=== PATIENT | female | born 1990 | race Caucasian/White ===

== ENCOUNTER 2020-05-16 15:43 | Inpatient (IN) | payer BC ==
[~2020-05-16] VITALS: Ht 160 cm; Wt 69.2 kg
[2020-05-16] MEDS: BETAMETHASONE 6 MG/ML, 5ML IM SCH (15:45)
[2020-05-16 15:50] VITALS: BP 174/108
[2020-05-16] MEDS ORDERED: MAGNESIUM SULFATE PMX 2GM/50ML 50 ML IVPB ONE (16:00)
[2020-05-16] MEDS ORDERED: LACTATED RINGERS 1,000 ML IV PRN ×2 (16:00)
[2020-05-16] MEDS ORDERED: PLEASE ENTER HEIGHT AND WEIGHT MC SCH (16:00)
[2020-05-16] MEDS ORDERED: MAGNESIUM SULFATE PMX 4GM/100M 100 ML IVPB ONE ×2 (16:00)
[2020-05-16 16:05] LABS: MICROSCOPIC NOT IND
[2020-05-16] MEDS: MAGNESIUM SULF. PMX 20GM/500ML 500 ML IV SCH ×2 (16:07→23:56)
[2020-05-16 16:11] LABS: BASOPHILS % (AUTO) 1 % (0-1); EOSINOPHILS % (AUTO) 1 % (1-7); LYMPHOCYTES % (AUTO) 23 % (22-44); MEAN CORPUSCULAR HEMOGLOBIN 32.9 pg (27.0-34.8); MEAN CORPUSCULAR HGB CONC 35.6 g/dL (32.4-35.8); MEAN PLATELET VOLUME 9.1 fL (7.4-10.4); MONOCYTES % (AUTO) 8 % (2-9); NEUTROPHILS % (AUTO) 68 % (42-75); PLATELET COUNT 156 x10^3/uL (130-400); RED BLOOD COUNT 4.24 x10^6/uL (3.82-5.3); RED CELL DISTRIBUTION WIDTH 13.5 % (9.6-15.2)
[2020-05-16 16:13] LABS: MD NO
[2020-05-16 16:21] LABS: TOTAL PROTEIN,URINE RANDOM < 5 mg/dL (0-12)
[2020-05-16 16:21] LABS: ALANINE AMINOTRANSFERASE 28 U/L (12-78); ALBUMIN 2.8 g/dL (3.4-5.0); ANION GAP 8 mmol/L (5-15); CALCIUM 8.3 mg/dL (8.5-10.1); CHLORIDE 112 mmol/L (98-107)
[2020-05-16 16:22] LABS: BILIRUBIN, DIRECT < 0.1 mg/dL (0.1-0.2)
[2020-05-16] MEDS ORDERED: LABETALOL 5MG/ML, 20ML ONE ×2 (16:22→17:32)
[2020-05-16 16:24] LABS: ALKALINE PHOSPHATASE 74 U/L (45-117); BILIRUBIN,TOTAL 0.3 mg/dL (0.2-1.0); TOTAL PROTEIN 6.1 g/dL (6.4-8.2)
[2020-05-16] MEDS ORDERED: LABETALOL 5MG/ML, 20ML IVPush PRN ×3 (16:30)
[2020-05-16] MEDS ORDERED: hydrALAzine 20 MG/ML, 1ML IVPush ONE (16:30)
[2020-05-16] MEDS ORDERED: niFEDipine ER 30 MG TABLET.ER ONE (17:58)
[2020-05-16] MEDS: niFEDipine ER 30 MG TABLET.ER PO SCH (17:59)
[2020-05-16] MEDS ORDERED: ACETAMINOPHEN 500 MG TABLET ONE (20:56)
[2020-05-16] MEDS ORDERED: ACETAMINOPHEN 500 MG TABLET PO PRN (21:00)
[2020-05-16] MEDS ORDERED: MAGNESIUM SULF. PMX 20GM/500ML 500 ML IV ONE (23:51)
[2020-05-17] MEDS ORDERED: ACETAMINOPHEN 500 MG TABLET ONE (03:08)
[2020-05-17] MEDS: ACETAMINOPHEN 500 MG TABLET PO PRN (03:09)
[2020-05-17 05:30] LABS: BASOPHILS % (AUTO) 0 % (0-1); EOSINOPHILS % (AUTO) 0 % (1-7); LYMPHOCYTES % (AUTO) 9 % (22-44); MEAN CORPUSCULAR HEMOGLOBIN 32.7 pg (27.0-34.8); MEAN CORPUSCULAR HGB CONC 35.2 g/dL (32.4-35.8); MEAN PLATELET VOLUME 8.9 fL (7.4-10.4); MONOCYTES % (AUTO) 2 % (2-9); NEUTROPHILS % (AUTO) 89 % (42-75); PLATELET COUNT 169 x10^3/uL (130-400); RED BLOOD COUNT 4.37 x10^6/uL (3.82-5.3); RED CELL DISTRIBUTION WIDTH 13.5 % (9.6-15.2)
[2020-05-17 05:35] LABS: MD NO
[2020-05-17 05:42] LABS: ALANINE AMINOTRANSFERASE 30 U/L (12-78); ALBUMIN 2.7 g/dL (3.4-5.0); ANION GAP 10 mmol/L (5-15); CHLORIDE 106 mmol/L (98-107); CREATININE 0.77 mg/dL (0.55-1.02)
[2020-05-17 05:44] LABS: ALKALINE PHOSPHATASE 69 U/L (45-117); BILIRUBIN,TOTAL 0.4 mg/dL (0.2-1.0); TOTAL PROTEIN 6.1 g/dL (6.4-8.2)
[2020-05-17] MEDS ORDERED: niFEDipine ER 30 MG TABLET.ER ONE (08:53)
[2020-05-17] MEDS: niFEDipine ER 30 MG TABLET.ER PO SCH (08:55)
[2020-05-17] MEDS ORDERED: MAGNESIUM SULF. PMX 20GM/500ML 500 ML IV ONE (08:59)
[2020-05-17] MEDS: MAGNESIUM SULF. PMX 20GM/500ML 500 ML IV SCH ×2 (09:02→22:00)
[2020-05-17 09:13] VITALS: BP 123/76
[2020-05-17] MEDS: BETAMETHASONE 6 MG/ML, 5ML IM SCH (15:46)
[2020-05-17 17:10] VITALS: BP 124/84
[2020-05-17 20:49] VITALS: BP 128/82
[2020-05-18] MEDS: MAGNESIUM SULF. PMX 20GM/500ML 500 ML IV SCH ×2 (08:00→18:00)
[2020-05-18] MEDS: niFEDipine ER 30 MG TABLET.ER PO SCH (08:30)
[2020-05-18] MEDS ORDERED: niFEDipine ER 30 MG TABLET.ER ONE (08:30)
[2020-05-18 08:32] VITALS: BP 137/79
[2020-05-18 11:36] LABS: BASOPHILS % (AUTO) 0 % (0-1); EOSINOPHILS % (AUTO) 0 % (1-7); LYMPHOCYTES % (AUTO) 10 % (22-44); MEAN CORPUSCULAR HEMOGLOBIN 32.8 pg (27.0-34.8); MEAN CORPUSCULAR HGB CONC 35.2 g/dL (32.4-35.8); MONOCYTES % (AUTO) 9 % (2-9); NEUTROPHILS % (AUTO) 81 % (42-75); PLATELET COUNT 209 x10^3/uL (130-400); RED BLOOD COUNT 4.32 x10^6/uL (3.82-5.3); RED CELL DISTRIBUTION WIDTH 13.6 % (9.6-15.2)
[2020-05-18 11:41] LABS: MD NO
[2020-05-18 11:52] LABS: ALANINE AMINOTRANSFERASE 28 U/L (12-78); ALBUMIN 2.9 g/dL (3.4-5.0); ANION GAP 7 mmol/L (5-15); CALCIUM 7.7 mg/dL (8.5-10.1); CHLORIDE 109 mmol/L (98-107); CREATININE 0.87 mg/dL (0.55-1.02)
[2020-05-18 11:54] LABS: ALKALINE PHOSPHATASE 67 U/L (45-117); BILIRUBIN,TOTAL 0.2 mg/dL (0.2-1.0); TOTAL PROTEIN 6.3 g/dL (6.4-8.2)
[2020-05-18 14:04] VITALS: BP 128/81
[2020-05-18 19:52] VITALS: BP 134/97
[2020-05-18] MEDS ORDERED: PRENATAL VIT/IRON/FA 1 EACH TABLET ONE (20:08)
[2020-05-18] MEDS: PRENATAL VIT/IRON/FA 1 EACH TABLET PO SCH (20:10)
[2020-05-19] MEDS: MAGNESIUM SULF. PMX 20GM/500ML 500 ML IV SCH (04:00)
[2020-05-19] MEDS: SODIUM CHLORIDE FLUSH 10ML SYR IVF PRN ×3 (06:08→21:07)
[2020-05-19] MEDS ORDERED: niFEDipine ER 30 MG TABLET.ER ONE (08:49)
[2020-05-19] MEDS: niFEDipine ER 30 MG TABLET.ER PO SCH (09:05)
[2020-05-19 09:23] LABS: BASOPHILS % (AUTO) 0 % (0-1); EOSINOPHILS % (AUTO) 0 % (1-7); LYMPHOCYTES % (AUTO) 23 % (22-44); MD NO; MEAN CORPUSCULAR HEMOGLOBIN 32.8 pg (27.0-34.8); MEAN CORPUSCULAR HGB CONC 35.2 g/dL (32.4-35.8); MONOCYTES % (AUTO) 10 % (2-9); NEUTROPHILS % (AUTO) 67 % (42-75); PLATELET COUNT 166 x10^3/uL (130-400); RED BLOOD COUNT 4.43 x10^6/uL (3.82-5.3); RED CELL DISTRIBUTION WIDTH 13.7 % (9.6-15.2)
[2020-05-19 09:30] LABS: ALANINE AMINOTRANSFERASE 29 U/L (12-78); ALBUMIN 2.7 g/dL (3.4-5.0); ANION GAP 7 mmol/L (5-15); CALCIUM 8.2 mg/dL (8.5-10.1); CHLORIDE 110 mmol/L (98-107); CREATININE 0.77 mg/dL (0.55-1.02)
[2020-05-19 09:32] LABS: ALKALINE PHOSPHATASE 68 U/L (45-117); BILIRUBIN,TOTAL 0.3 mg/dL (0.2-1.0)
[2020-05-19 19:55] VITALS: BP 131/72
[2020-05-19] MEDS ORDERED: PRENATAL VIT/IRON/FA 1 EACH TABLET ONE (21:00)
[2020-05-19] MEDS: PRENATAL VIT/IRON/FA 1 EACH TABLET PO SCH (21:07)
[2020-05-20] MEDS: SODIUM CHLORIDE FLUSH 10ML SYR IVF PRN ×2 (06:07→16:12)
[2020-05-20] MEDS ORDERED: niFEDipine ER 30 MG TABLET.ER ONE (08:57)
[2020-05-20] MEDS: niFEDipine ER 30 MG TABLET.ER PO SCH (08:59)
[2020-05-20 09:25] LABS: ALANINE AMINOTRANSFERASE 67 U/L (12-78); ALBUMIN 2.7 g/dL (3.4-5.0); ANION GAP 7 mmol/L (5-15); CALCIUM 8.6 mg/dL (8.5-10.1); CHLORIDE 109 mmol/L (98-107); CREATININE 0.75 mg/dL (0.55-1.02)
[2020-05-20 09:27] LABS: ALKALINE PHOSPHATASE 65 U/L (45-117); BILIRUBIN,TOTAL 0.4 mg/dL (0.2-1.0)
[2020-05-20 09:35] LABS: BASOPHILS % (AUTO) 0 % (0-1); EOSINOPHILS % (AUTO) 0 % (1-7); LYMPHOCYTES % (AUTO) 27 % (22-44); MD NO; MEAN CORPUSCULAR HEMOGLOBIN 32.6 pg (27.0-34.8); MEAN PLATELET VOLUME 9.3 fL (7.4-10.4); MONOCYTES % (AUTO) 12 % (2-9); NEUTROPHILS % (AUTO) 61 % (42-75); PLATELET COUNT 163 x10^3/uL (130-400); RED BLOOD COUNT 4.62 x10^6/uL (3.82-5.3); RED CELL DISTRIBUTION WIDTH 13.3 % (9.6-15.2)
[2020-05-20] MEDS ORDERED: ACETAMINOPHEN 325 MG TABLET ONE (16:06)
[2020-05-20] MEDS ORDERED: ACETAMINOPHEN 500 MG TABLET ONE (16:10)
[2020-05-20] MEDS: ACETAMINOPHEN 500 MG TABLET PO PRN (16:11)
[2020-05-20 16:38] LABS: BASOPHILS % (AUTO) 0 % (0-1); EOSINOPHILS % (AUTO) 1 % (1-7); LYMPHOCYTES % (AUTO) 24 % (22-44); MD NO; MEAN CORPUSCULAR HGB CONC 35.4 g/dL (32.4-35.8); MEAN PLATELET VOLUME 9.1 fL (7.4-10.4); MONOCYTES % (AUTO) 10 % (2-9); NEUTROPHILS % (AUTO) 65 % (42-75); PLATELET COUNT 172 x10^3/uL (130-400); RED BLOOD COUNT 4.62 x10^6/uL (3.82-5.3); RED CELL DISTRIBUTION WIDTH 13.6 % (9.6-15.2)
[2020-05-20 16:39] LABS: ALANINE AMINOTRANSFERASE 67 U/L (12-78); ALBUMIN 2.8 g/dL (3.4-5.0); ANION GAP 7 mmol/L (5-15); CALCIUM 8.8 mg/dL (8.5-10.1); CHLORIDE 109 mmol/L (98-107)
[2020-05-20 16:41] LABS: ALKALINE PHOSPHATASE 77 U/L (45-117); BILIRUBIN,TOTAL 0.3 mg/dL (0.2-1.0); TOTAL PROTEIN 6.2 g/dL (6.4-8.2)
[2020-05-20 20:12] VITALS: BP 138/88
[2020-05-20] MEDS: PRENATAL VIT/IRON/FA 1 EACH TABLET PO SCH (20:27)
[2020-05-21] MEDS: SODIUM CHLORIDE FLUSH 10ML SYR IVF PRN ×3 (01:06→21:00)
[2020-05-21 08:20] VITALS: BP 140/95
[2020-05-21] MEDS ORDERED: PRENATAL VIT/IRON/FA 1 EACH TABLET ONE (08:34)
[2020-05-21] MEDS ORDERED: DOCUSATE 100 MG CAPSULE ONE (08:34)
[2020-05-21] MEDS ORDERED: niFEDipine ER 30 MG TABLET.ER ONE (08:34)
[2020-05-21] MEDS: niFEDipine ER 30 MG TABLET.ER PO SCH (08:39)
[2020-05-21 08:43] LABS: BASOPHILS % (AUTO) 0 % (0-1); EOSINOPHILS % (AUTO) 1 % (1-7); LYMPHOCYTES % (AUTO) 25 % (22-44); MEAN CORPUSCULAR HEMOGLOBIN 32.9 pg (27.0-34.8); MEAN CORPUSCULAR HGB CONC 35.9 g/dL (32.4-35.8); MEAN PLATELET VOLUME 8.9 fL (7.4-10.4); MONOCYTES % (AUTO) 6 % (2-9); NEUTROPHILS % (AUTO) 68 % (42-75); PLATELET COUNT 169 x10^3/uL (130-400); RED BLOOD COUNT 4.85 x10^6/uL (3.82-5.3); RED CELL DISTRIBUTION WIDTH 13.4 % (9.6-15.2)
[2020-05-21 08:47] LABS: MD NO
[2020-05-21 08:54] LABS: ALANINE AMINOTRANSFERASE 59 U/L (12-78); ALBUMIN 2.7 g/dL (3.4-5.0); ANION GAP 10 mmol/L (5-15); CALCIUM 8.7 mg/dL (8.5-10.1); CHLORIDE 108 mmol/L (98-107)
[2020-05-21 08:57] LABS: ALKALINE PHOSPHATASE 73 U/L (45-117); BILIRUBIN,TOTAL 0.4 mg/dL (0.2-1.0); TOTAL PROTEIN 6.1 g/dL (6.4-8.2)
[2020-05-21 20:18] VITALS: BP 136/92
[2020-05-22 00:23] VITALS: BP 137/86
[2020-05-22] MEDS ORDERED: niFEDipine ER 30 MG TABLET.ER ONE (08:36)
[2020-05-22] MEDS ORDERED: PRENATAL VIT/IRON/FA 1 EACH TABLET ONE (08:36)
[2020-05-22] MEDS: niFEDipine ER 30 MG TABLET.ER PO SCH (08:51)
[2020-05-22] MEDS: PRENATAL VIT/IRON/FA 1 EACH TABLET PO SCH (08:51)
[2020-05-22] MEDS: SODIUM CHLORIDE FLUSH 10ML SYR IVF PRN ×2 (08:52→21:00)
[2020-05-22] MEDS ORDERED: DOCUSATE 100 MG CAPSULE ONE ×2 (08:54→21:37)
[2020-05-22] MEDS: DOCUSATE 100 MG CAPSULE PO PRN ×2 (08:54→21:39)
[2020-05-22 09:07] LABS: BASOPHILS % (AUTO) 1 % (0-1); EOSINOPHILS % (AUTO) 1 % (1-7); LYMPHOCYTES % (AUTO) 28 % (22-44); MEAN CORPUSCULAR HEMOGLOBIN 32.5 pg (27.0-34.8); MEAN CORPUSCULAR HGB CONC 35.1 g/dL (32.4-35.8); MEAN PLATELET VOLUME 8.9 fL (7.4-10.4); MONOCYTES % (AUTO) 6 % (2-9); NEUTROPHILS % (AUTO) 65 % (42-75); PLATELET COUNT 192 x10^3/uL (130-400); RED BLOOD COUNT 4.94 x10^6/uL (3.82-5.3); RED CELL DISTRIBUTION WIDTH 13.5 % (9.6-15.2)
[2020-05-22 09:10] LABS: MD NO
[2020-05-22 09:21] LABS: ALANINE AMINOTRANSFERASE 44 U/L (12-78); ALBUMIN 2.8 g/dL (3.4-5.0); ANION GAP 9 mmol/L (5-15); CALCIUM 8.6 mg/dL (8.5-10.1); CHLORIDE 109 mmol/L (98-107); CREATININE 0.88 mg/dL (0.55-1.02)
[2020-05-22 09:23] LABS: ALKALINE PHOSPHATASE 76 U/L (45-117); BILIRUBIN,TOTAL 0.5 mg/dL (0.2-1.0); TOTAL PROTEIN 6.4 g/dL (6.4-8.2)
[2020-05-22 21:13] VITALS: BP 135/88
[2020-05-22 21:54] VITALS: BP 142/92
[2020-05-23 06:46] LABS: BASOPHILS % (AUTO) 1 % (0-1); EOSINOPHILS % (AUTO) 1 % (1-7); LYMPHOCYTES % (AUTO) 29 % (22-44); MEAN CORPUSCULAR HEMOGLOBIN 32.9 pg (27.0-34.8); MEAN CORPUSCULAR HGB CONC 35.4 g/dL (32.4-35.8); MEAN PLATELET VOLUME 8.8 fL (7.4-10.4); MONOCYTES % (AUTO) 8 % (2-9); NEUTROPHILS % (AUTO) 62 % (42-75); PLATELET COUNT 155 x10^3/uL (130-400); RED BLOOD COUNT 4.62 x10^6/uL (3.82-5.3); RED CELL DISTRIBUTION WIDTH 13.7 % (9.6-15.2)
[2020-05-23 06:48] LABS: MD NO
[2020-05-23 06:56] LABS: ALANINE AMINOTRANSFERASE 33 U/L (12-78); ALBUMIN 2.6 g/dL (3.4-5.0); ANION GAP 8 mmol/L (5-15); CALCIUM 8.2 mg/dL (8.5-10.1); CHLORIDE 109 mmol/L (98-107); CREATININE 0.77 mg/dL (0.55-1.02)
[2020-05-23 06:59] LABS: ALKALINE PHOSPHATASE 68 U/L (45-117); BILIRUBIN,TOTAL 0.4 mg/dL (0.2-1.0); TOTAL PROTEIN 5.8 g/dL (6.4-8.2)
[2020-05-23] MEDS ORDERED: DOCUSATE 100 MG CAPSULE ONE ×2 (08:19→20:58)
[2020-05-23] MEDS ORDERED: PRENATAL VIT/IRON/FA 1 EACH TABLET ONE (08:19)
[2020-05-23] MEDS ORDERED: niFEDipine ER 30 MG TABLET.ER ONE (08:20)
[2020-05-23] MEDS: PRENATAL VIT/IRON/FA 1 EACH TABLET PO SCH (08:22)
[2020-05-23] MEDS: niFEDipine ER 30 MG TABLET.ER PO SCH (08:22)
[2020-05-23] MEDS: DOCUSATE 100 MG CAPSULE PO PRN ×2 (08:22→21:00)
[2020-05-23 08:33] VITALS: BP 148/75
[2020-05-23 18:16] LABS: BASOPHILS % (AUTO) 0 % (0-1); EOSINOPHILS % (AUTO) 1 % (1-7); LYMPHOCYTES % (AUTO) 18 % (22-44); MEAN PLATELET VOLUME 8.5 fL (7.4-10.4); MONOCYTES % (AUTO) 7 % (2-9); NEUTROPHILS % (AUTO) 74 % (42-75); PLATELET COUNT 163 x10^3/uL (130-400); RED BLOOD COUNT 4.88 x10^6/uL (3.82-5.3); RED CELL DISTRIBUTION WIDTH 13.6 % (9.6-15.2)
[2020-05-23 18:27] LABS: ALANINE AMINOTRANSFERASE 34 U/L (12-78); ANION GAP 8 mmol/L (5-15); CALCIUM 8.7 mg/dL (8.5-10.1); CHLORIDE 106 mmol/L (98-107)
[2020-05-23 18:30] LABS: ALKALINE PHOSPHATASE 81 U/L (45-117); BILIRUBIN,TOTAL 0.5 mg/dL (0.2-1.0); TOTAL PROTEIN 6.5 g/dL (6.4-8.2)
[2020-05-23 18:52] LABS: MD NO
[2020-05-23] MEDS: SODIUM CHLORIDE FLUSH 10ML SYR IVF PRN (21:00)
[2020-05-24 04:45] LABS: BASOPHILS % (AUTO) 0 % (0-1); EOSINOPHILS % (AUTO) 1 % (1-7); LYMPHOCYTES % (AUTO) 19 % (22-44); MEAN CORPUSCULAR HEMOGLOBIN 33.2 pg (27.0-34.8); MEAN CORPUSCULAR HGB CONC 36.3 g/dL (32.4-35.8); MEAN PLATELET VOLUME 8.5 fL (7.4-10.4); MONOCYTES % (AUTO) 9 % (2-9); NEUTROPHILS % (AUTO) 71 % (42-75); PLATELET COUNT 130 x10^3/uL (130-400); RED CELL DISTRIBUTION WIDTH 13.7 % (9.6-15.2)
[2020-05-24 04:47] LABS: MD NO
[2020-05-24 04:57] LABS: ALANINE AMINOTRANSFERASE 28 U/L (12-78); ALBUMIN 2.5 g/dL (3.4-5.0); ANION GAP 7 mmol/L (5-15); CALCIUM 8.1 mg/dL (8.5-10.1); CHLORIDE 109 mmol/L (98-107); CREATININE 0.77 mg/dL (0.55-1.02)
[2020-05-24 05:00] LABS: ALKALINE PHOSPHATASE 73 U/L (45-117); BILIRUBIN,TOTAL 0.6 mg/dL (0.2-1.0); TOTAL PROTEIN 5.8 g/dL (6.4-8.2)
[2020-05-24] MEDS ORDERED: PRENATAL VIT/IRON/FA 1 EACH TABLET ONE (09:19)
[2020-05-24] MEDS ORDERED: niFEDipine ER 30 MG TABLET.ER ONE (09:19)
[2020-05-24] MEDS ORDERED: DOCUSATE 100 MG CAPSULE ONE ×2 (09:19→09:24)
[2020-05-24] MEDS: SODIUM CHLORIDE FLUSH 10ML SYR IVF PRN (09:21)
[2020-05-24] MEDS: niFEDipine ER 30 MG TABLET.ER PO SCH (09:21)
[2020-05-24] MEDS: PRENATAL VIT/IRON/FA 1 EACH TABLET PO SCH (09:21)
[2020-05-24] MEDS: DOCUSATE 100 MG CAPSULE PO PRN (09:21)
[2020-05-24 18:29] LABS: BASOPHILS % (AUTO) 1 % (0-1); EOSINOPHILS % (AUTO) 1 % (1-7); LYMPHOCYTES % (AUTO) 23 % (22-44); MEAN CORPUSCULAR HEMOGLOBIN 32.9 pg (27.0-34.8); MEAN CORPUSCULAR HGB CONC 35.8 g/dL (32.4-35.8); MEAN PLATELET VOLUME 8.6 fL (7.4-10.4); MONOCYTES % (AUTO) 8 % (2-9); NEUTROPHILS % (AUTO) 67 % (42-75); PLATELET COUNT 125 x10^3/uL (130-400); RED BLOOD COUNT 4.57 x10^6/uL (3.82-5.3); RED CELL DISTRIBUTION WIDTH 13.5 % (9.6-15.2)
[2020-05-24 18:37] LABS: ALANINE AMINOTRANSFERASE 28 U/L (12-78); ALBUMIN 2.8 g/dL (3.4-5.0); ANION GAP 7 mmol/L (5-15); CALCIUM 8.6 mg/dL (8.5-10.1); CHLORIDE 107 mmol/L (98-107); CREATININE 0.81 mg/dL (0.55-1.02)
[2020-05-24 18:39] LABS: ALKALINE PHOSPHATASE 86 U/L (45-117); BILIRUBIN, DIRECT < 0.1 mg/dL (0.1-0.2); BILIRUBIN,TOTAL 0.4 mg/dL (0.2-1.0); TOTAL PROTEIN 6.4 g/dL (6.4-8.2)
[2020-05-24 18:44] LABS: MD NO
[2020-05-24 20:14] LABS: PROTEIN/CREATININE RATIO,URINE < 272 (0-200); TOTAL PROTEIN,URINE RANDOM < 5 mg/dL (0-12)
[2020-05-25 06:00] LABS: BASOPHILS % (AUTO) 1 % (0-1); EOSINOPHILS % (AUTO) 1 % (1-7); LYMPHOCYTES % (AUTO) 30 % (22-44); MEAN CORPUSCULAR HEMOGLOBIN 33.3 pg (27.0-34.8); MEAN CORPUSCULAR HGB CONC 36.6 g/dL (32.4-35.8); MEAN PLATELET VOLUME 8.5 fL (7.4-10.4); MONOCYTES % (AUTO) 8 % (2-9); NEUTROPHILS % (AUTO) 59 % (42-75); PLATELET COUNT 125 x10^3/uL (130-400); RED BLOOD COUNT 4.49 x10^6/uL (3.82-5.3); RED CELL DISTRIBUTION WIDTH 13.5 % (9.6-15.2)
[2020-05-25 06:01] LABS: MD NO
[2020-05-25 06:12] LABS: ALANINE AMINOTRANSFERASE 28 U/L (12-78); ALBUMIN 2.7 g/dL (3.4-5.0); ANION GAP 9 mmol/L (5-15); CALCIUM 8.2 mg/dL (8.5-10.1); CHLORIDE 107 mmol/L (98-107); CREATININE 0.81 mg/dL (0.55-1.02)
[2020-05-25 06:15] LABS: ALKALINE PHOSPHATASE 75 U/L (45-117); BILIRUBIN,TOTAL 0.4 mg/dL (0.2-1.0); TOTAL PROTEIN 6.1 g/dL (6.4-8.2)
[2020-05-25 06:16] LABS: BILIRUBIN, DIRECT < 0.1 mg/dL (0.1-0.2)
[2020-05-25] MEDS ORDERED: PRENATAL VIT/IRON/FA 1 EACH TABLET ONE (07:57)
[2020-05-25] MEDS ORDERED: DOCUSATE 100 MG CAPSULE ONE (07:57)
[2020-05-25] MEDS ORDERED: niFEDipine ER 30 MG TABLET.ER ONE (07:58)
[2020-05-25] MEDS: niFEDipine ER 30 MG TABLET.ER PO SCH (09:04)
[2020-05-25] MEDS: SODIUM CHLORIDE FLUSH 10ML SYR IVF PRN (09:04)
[2020-05-25] MEDS: PRENATAL VIT/IRON/FA 1 EACH TABLET PO SCH (09:04)
[2020-05-25] MEDS: DOCUSATE 100 MG CAPSULE PO PRN (09:04)
[2020-05-25 09:40] VITALS: BP 114/79
[2020-05-25 20:13] VITALS: BP 133/88
[2020-05-26 04:58] LABS: BASOPHILS % (AUTO) 0 % (0-1); EOSINOPHILS % (AUTO) 1 % (1-7); LYMPHOCYTES % (AUTO) 35 % (22-44); MEAN CORPUSCULAR HGB CONC 36.1 g/dL (32.4-35.8); MEAN PLATELET VOLUME 8.7 fL (7.4-10.4); MONOCYTES % (AUTO) 8 % (2-9); NEUTROPHILS % (AUTO) 55 % (42-75); PLATELET COUNT 133 x10^3/uL (130-400); RED BLOOD COUNT 4.41 x10^6/uL (3.82-5.3); RED CELL DISTRIBUTION WIDTH 13.5 % (9.6-15.2)
[2020-05-26 05:06] LABS: MD NO
[2020-05-26 05:23] LABS: ALANINE AMINOTRANSFERASE 25 U/L (12-78); ALBUMIN 2.5 g/dL (3.4-5.0); ANION GAP 8 mmol/L (5-15); CHLORIDE 110 mmol/L (98-107)
[2020-05-26 05:26] LABS: ALKALINE PHOSPHATASE 82 U/L (45-117); BILIRUBIN,TOTAL 0.3 mg/dL (0.2-1.0); CREATININE 0.75 mg/dL (0.55-1.02); TOTAL PROTEIN 5.8 g/dL (6.4-8.2)
[2020-05-26] MEDS ORDERED: DOCUSATE 100 MG CAPSULE ONE ×2 (08:25→21:06)
[2020-05-26] MEDS ORDERED: niFEDipine ER 30 MG TABLET.ER ONE (08:25)
[2020-05-26] MEDS ORDERED: PRENATAL VIT/IRON/FA 1 EACH TABLET ONE (08:25)
[2020-05-26] MEDS: niFEDipine ER 30 MG TABLET.ER PO SCH (08:37)
[2020-05-26] MEDS: DOCUSATE 100 MG CAPSULE PO PRN ×2 (08:37→21:08)
[2020-05-26] MEDS: PRENATAL VIT/IRON/FA 1 EACH TABLET PO SCH (08:37)
[2020-05-26] MEDS: SODIUM CHLORIDE FLUSH 10ML SYR IVF PRN ×2 (08:38→21:08)
[2020-05-26] MEDS ORDERED: MAGNESIUM SULFATE PMX 2GM/50ML 0 ML ONE (22:21)
[2020-05-26] MEDS ORDERED: MAGNESIUM SULFATE PMX 4GM/100M 100 ML ONE (22:21)
[2020-05-26] MEDS ORDERED: MAGNESIUM SULF. PMX 20GM/500ML 500 ML IV ONE (22:22)
[2020-05-26] MEDS ORDERED: MAGNESIUM SULFATE PMX 4GM/100M 100 ML IVPB ONE (22:30)
[2020-05-26] MEDS ORDERED: MAGNESIUM SULF. PMX 20GM/500ML 500 ML IV SCH (22:30)
[2020-05-27] MEDS: LACTATED RINGERS 1,000 ML IV SCH ×2 (03:30→13:30)
[2020-05-27 08:00] LABS: BASOPHILS % (AUTO) 1 % (0-1); EOSINOPHILS % (AUTO) 1 % (1-7); LYMPHOCYTES % (AUTO) 33 % (22-44); MEAN CORPUSCULAR HEMOGLOBIN 32.7 pg (27.0-34.8); MEAN CORPUSCULAR HGB CONC 35.2 g/dL (32.4-35.8); MEAN PLATELET VOLUME 8.8 fL (7.4-10.4); MONOCYTES % (AUTO) 8 % (2-9); NEUTROPHILS % (AUTO) 58 % (42-75); PLATELET COUNT 126 x10^3/uL (130-400); RED BLOOD COUNT 4.29 x10^6/uL (3.82-5.3); RED CELL DISTRIBUTION WIDTH 13.6 % (9.6-15.2)
[2020-05-27 08:04] LABS: MD NO
[2020-05-27 08:11] LABS: ALBUMIN 2.5 g/dL (3.4-5.0); ANION GAP 6 mmol/L (5-15); CALCIUM 7.1 mg/dL (8.5-10.1); CHLORIDE 106 mmol/L (98-107)
[2020-05-27 08:15] LABS: ALANINE AMINOTRANSFERASE 21 U/L (12-78); ALKALINE PHOSPHATASE 81 U/L (45-117); BILIRUBIN,TOTAL 0.3 mg/dL (0.2-1.0); CREATININE 0.84 mg/dL (0.55-1.02); TOTAL PROTEIN 5.9 g/dL (6.4-8.2)
[2020-05-27] MEDS ORDERED: PRENATAL VIT/IRON/FA 1 EACH TABLET ONE (08:55)
[2020-05-27] MEDS ORDERED: niFEDipine ER 30 MG TABLET.ER ONE (08:55)
[2020-05-27] MEDS ORDERED: DOCUSATE 100 MG CAPSULE ONE ×2 (08:55→19:37)
[2020-05-27] MEDS: DOCUSATE 100 MG CAPSULE PO PRN ×2 (08:58→19:41)
[2020-05-27] MEDS: niFEDipine ER 30 MG TABLET.ER PO SCH (08:59)
[2020-05-27] MEDS: PRENATAL VIT/IRON/FA 1 EACH TABLET PO SCH (08:59)
[2020-05-27] MEDS ORDERED: ACETAMINOPHEN 500 MG TABLET ONE ×2 (11:06→19:44)
[2020-05-27] MEDS: ACETAMINOPHEN 500 MG TABLET PO PRN ×2 (11:08→19:47)
[2020-05-27 17:11] LABS: TOTAL PROTEIN 24HR,URINE 215 mg/24hrs (0-149)
[2020-05-27] MEDS ORDERED: ACETAMINOPHEN 325 MG TABLET ONE (19:37)
[2020-05-27 20:00] VITALS: BP 136/82
[2020-05-27] MEDS ORDERED: SODIUM CHLORIDE FLUSH 10ML SYR IVF SCH (21:00)
[2020-05-28 05:47] LABS: BASOPHILS % (AUTO) 0 % (0-1); EOSINOPHILS % (AUTO) 1 % (1-7); LYMPHOCYTES % (AUTO) 36 % (22-44); MEAN CORPUSCULAR HEMOGLOBIN 32.8 pg (27.0-34.8); MEAN CORPUSCULAR HGB CONC 35.6 g/dL (32.4-35.8); MEAN PLATELET VOLUME 8.7 fL (7.4-10.4); MONOCYTES % (AUTO) 8 % (2-9); NEUTROPHILS % (AUTO) 55 % (42-75); PLATELET COUNT 143 x10^3/uL (130-400); RED BLOOD COUNT 4.39 x10^6/uL (3.82-5.3); RED CELL DISTRIBUTION WIDTH 13.4 % (9.6-15.2)
[2020-05-28 05:58] LABS: ALANINE AMINOTRANSFERASE 19 U/L (12-78); ALBUMIN 2.5 g/dL (3.4-5.0); ANION GAP 6 mmol/L (5-15); CHLORIDE 111 mmol/L (98-107)
[2020-05-28 06:00] LABS: ALKALINE PHOSPHATASE 76 U/L (45-117); BILIRUBIN,TOTAL 0.3 mg/dL (0.2-1.0)
[2020-05-28 06:16] LABS: MD SCAN
[2020-05-28] MEDS ORDERED: niFEDipine ER 30 MG TABLET.ER ONE (08:50)
[2020-05-28] MEDS ORDERED: PRENATAL VIT/IRON/FA 1 EACH TABLET ONE (08:50)
[2020-05-28] MEDS: SODIUM CHLORIDE FLUSH 10ML SYR IVF PRN ×2 (08:52→21:00)
[2020-05-28] MEDS: niFEDipine ER 30 MG TABLET.ER PO SCH (08:52)
[2020-05-28] MEDS: PRENATAL VIT/IRON/FA 1 EACH TABLET PO SCH (08:52)
[2020-05-28] MEDS: DOCUSATE 100 MG CAPSULE PO PRN (21:00)
[2020-05-29 08:24] LABS: BASOPHILS % (AUTO) 1 % (0-1); EOSINOPHILS % (AUTO) 1 % (1-7); LYMPHOCYTES % (AUTO) 29 % (22-44); MEAN CORPUSCULAR HEMOGLOBIN 32.5 pg (27.0-34.8); MONOCYTES % (AUTO) 7 % (2-9); NEUTROPHILS % (AUTO) 62 % (42-75); PLATELET COUNT 154 x10^3/uL (130-400); RED BLOOD COUNT 4.38 x10^6/uL (3.82-5.3); RED CELL DISTRIBUTION WIDTH 13.3 % (9.6-15.2)
[2020-05-29 08:30] LABS: ALANINE AMINOTRANSFERASE 19 U/L (12-78); ALBUMIN 2.6 g/dL (3.4-5.0); ANION GAP 9 mmol/L (5-15); CALCIUM 8.2 mg/dL (8.5-10.1); CHLORIDE 108 mmol/L (98-107)
[2020-05-29 08:32] LABS: ALKALINE PHOSPHATASE 81 U/L (45-117); BILIRUBIN,TOTAL 0.3 mg/dL (0.2-1.0)
[2020-05-29 08:34] LABS: MD NO
[2020-05-29] MEDS: niFEDipine ER 30 MG TABLET.ER PO SCH (09:03)
[2020-05-29] MEDS: PRENATAL VIT/IRON/FA 1 EACH TABLET PO SCH (09:03)
[2020-05-29] MEDS: DOCUSATE 100 MG CAPSULE PO PRN (09:03)
[2020-05-29 09:05] VITALS: BP 152/92
[2020-05-29] MEDS: ACETAMINOPHEN 500 MG TABLET PO PRN (14:46)
[2020-05-29 19:20] VITALS: BP 143/95
[2020-05-30 06:18] LABS: BASOPHILS % (AUTO) 1 % (0-1); EOSINOPHILS % (AUTO) 2 % (1-7); LYMPHOCYTES % (AUTO) 34 % (22-44); MEAN CORPUSCULAR HEMOGLOBIN 32.7 pg (27.0-34.8); MEAN CORPUSCULAR HGB CONC 35.8 g/dL (32.4-35.8); MONOCYTES % (AUTO) 7 % (2-9); NEUTROPHILS % (AUTO) 57 % (42-75); PLATELET COUNT 167 x10^3/uL (130-400); RED BLOOD COUNT 4.47 x10^6/uL (3.82-5.3); RED CELL DISTRIBUTION WIDTH 13.5 % (9.6-15.2)
[2020-05-30 06:23] LABS: MD NO
[2020-05-30 06:28] LABS: ALBUMIN 2.6 g/dL (3.4-5.0); ANION GAP 6 mmol/L (5-15); CALCIUM 8.5 mg/dL (8.5-10.1); CHLORIDE 109 mmol/L (98-107)
[2020-05-30 06:33] LABS: ALANINE AMINOTRANSFERASE 25 U/L (12-78); ALKALINE PHOSPHATASE 78 U/L (45-117); BILIRUBIN,TOTAL 0.2 mg/dL (0.2-1.0); CREATININE 0.84 mg/dL (0.55-1.02); TOTAL PROTEIN 6.1 g/dL (6.4-8.2)
[2020-05-30] MEDS: PRENATAL VIT/IRON/FA 1 EACH TABLET PO SCH (08:26)
[2020-05-30] MEDS: DOCUSATE 100 MG CAPSULE PO PRN (08:26)
[2020-05-30] MEDS: niFEDipine ER 30 MG TABLET.ER PO SCH (08:26)
[2020-05-30 10:06] VITALS: BP 143/99
[2020-05-30 21:30] VITALS: BP 131/87
[2020-05-31 06:11] LABS: BASOPHILS % (AUTO) 1 % (0-1); EOSINOPHILS % (AUTO) 1 % (1-7); LYMPHOCYTES % (AUTO) 34 % (22-44); MEAN CORPUSCULAR HEMOGLOBIN 32.6 pg (27.0-34.8); MEAN CORPUSCULAR HGB CONC 35.5 g/dL (32.4-35.8); MEAN PLATELET VOLUME 8.9 fL (7.4-10.4); MONOCYTES % (AUTO) 8 % (2-9); NEUTROPHILS % (AUTO) 57 % (42-75); PLATELET COUNT 156 x10^3/uL (130-400); RED BLOOD COUNT 4.39 x10^6/uL (3.82-5.3); RED CELL DISTRIBUTION WIDTH 13.4 % (9.6-15.2)
[2020-05-31 06:18] LABS: CHLORIDE 109 mmol/L (98-107)
[2020-05-31 06:25] LABS: MD NO
[2020-05-31 06:31] LABS: ALANINE AMINOTRANSFERASE 27 U/L (12-78); ALBUMIN 2.6 g/dL (3.4-5.0); ALKALINE PHOSPHATASE 83 U/L (45-117); ANION GAP 7 mmol/L (5-15); BILIRUBIN,TOTAL 0.2 mg/dL (0.2-1.0); CALCIUM 8.3 mg/dL (8.5-10.1); CREATININE 0.77 mg/dL (0.55-1.02)
[2020-05-31 07:30] VITALS: BP 130/84
[2020-05-31] MEDS: PRENATAL VIT/IRON/FA 1 EACH TABLET PO SCH (09:07)
[2020-05-31] MEDS: DOCUSATE 100 MG CAPSULE PO PRN (09:07)
[2020-05-31] MEDS: niFEDipine ER 30 MG TABLET.ER PO SCH (09:08)
[2020-05-31] MEDS: SODIUM CHLORIDE FLUSH 10ML SYR IVF PRN (09:09)
[2020-05-31 13:03] VITALS: BP 138/99
[2020-05-31 16:35] VITALS: BP 135/99
[2020-06-01] MEDS: niFEDipine ER 30 MG TABLET.ER PO SCH (08:57)
[2020-06-01] MEDS: DOCUSATE 100 MG CAPSULE PO PRN (08:57)
[2020-06-01] MEDS: PRENATAL VIT/IRON/FA 1 EACH TABLET PO SCH (08:57)
[2020-06-01] MEDS: SODIUM CHLORIDE FLUSH 10ML SYR IVF PRN (08:58)
[2020-06-01] MEDS ORDERED: BETAMETHASONE 6 MG/ML, 5ML IM ONE (20:54)
[2020-06-01] MEDS: BETAMETHASONE 6 MG/ML, 5ML IM SCH (20:58)
[2020-06-02] MEDS: DOCUSATE 100 MG CAPSULE PO PRN (08:52)
[2020-06-02] MEDS: niFEDipine ER 30 MG TABLET.ER PO SCH (08:52)
[2020-06-02] MEDS: PRENATAL VIT/IRON/FA 1 EACH TABLET PO SCH (08:52)
[2020-06-02 08:54] LABS: BASOPHILS % (AUTO) 0 % (0-1); EOSINOPHILS % (AUTO) 0 % (1-7); LYMPHOCYTES % (AUTO) 15 % (22-44); MEAN CORPUSCULAR HEMOGLOBIN 33.2 pg (27.0-34.8); MEAN CORPUSCULAR HGB CONC 36.2 g/dL (32.4-35.8); MEAN PLATELET VOLUME 8.9 fL (7.4-10.4); MONOCYTES % (AUTO) 1 % (2-9); NEUTROPHILS % (AUTO) 84 % (42-75); PLATELET COUNT 214 x10^3/uL (130-400); RED BLOOD COUNT 4.67 x10^6/uL (3.82-5.3); RED CELL DISTRIBUTION WIDTH 13.4 % (9.6-15.2)
[2020-06-02 09:06] LABS: ANION GAP 10 mmol/L (5-15); CALCIUM 9.2 mg/dL (8.5-10.1); CHLORIDE 106 mmol/L (98-107)
[2020-06-02 09:09] LABS: ALANINE AMINOTRANSFERASE 22 U/L (12-78); ALKALINE PHOSPHATASE 92 U/L (45-117); BILIRUBIN,TOTAL 0.4 mg/dL (0.2-1.0); CREATININE 1.07 mg/dL (0.55-1.02); TOTAL PROTEIN 6.8 g/dL (6.4-8.2)
[2020-06-02 09:14] LABS: MD SCAN
[2020-06-02 14:01] LABS: BASOPHILS % (AUTO) 0 % (0-1); EOSINOPHILS % (AUTO) 0 % (1-7); LYMPHOCYTES % (AUTO) 13 % (22-44); MEAN PLATELET VOLUME 8.8 fL (7.4-10.4); MONOCYTES % (AUTO) 2 % (2-9); NEUTROPHILS % (AUTO) 85 % (42-75); PLATELET COUNT 211 x10^3/uL (130-400); RED BLOOD COUNT 4.65 x10^6/uL (3.82-5.3); RED CELL DISTRIBUTION WIDTH 13.4 % (9.6-15.2)
[2020-06-02 14:03] LABS: MD NO
[2020-06-02 14:16] LABS: ALANINE AMINOTRANSFERASE 24 U/L (12-78); ANION GAP 9 mmol/L (5-15); CALCIUM 9.6 mg/dL (8.5-10.1); CHLORIDE 107 mmol/L (98-107); CREATININE 0.97 mg/dL (0.55-1.02)
[2020-06-02 14:18] LABS: ALKALINE PHOSPHATASE 90 U/L (45-117); BILIRUBIN,TOTAL 0.4 mg/dL (0.2-1.0); TOTAL PROTEIN 6.7 g/dL (6.4-8.2)
[2020-06-02] MEDS ORDERED: LACTATED RINGERS 1,000 ML IVBOLUS ONE (16:00)
[2020-06-02] MEDS ORDERED: hydrALAzine 20 MG/ML, 1ML IV PRN (16:30)
[2020-06-02] MEDS ORDERED: PROMETHAZINE 25 MG/ML, 1ML IV PRN (16:30)
[2020-06-02] MEDS ORDERED: LABETALOL 5MG/ML, 20ML IV PRN (16:30)
[2020-06-02] MEDS ORDERED: FENTANYL PF 100 MCG/2ML IV PRN (16:30)
[2020-06-02] MEDS ORDERED: HYDROmorphone 2 MG/ML, 1ML IVPush PRN (16:30)
[2020-06-02] MEDS ORDERED: ONDANSETRON 2MG/ML, 2ML IVPush PRN (16:30)
[2020-06-02] MEDS ORDERED: MIDAZOLAM 1 MG/ML, 2ML IV PRN (16:30)
[2020-06-02] MEDS ORDERED: EPHEDRINE 50 MG/ML, 1ML IVPush PRN (16:30)
[2020-06-02] MEDS ORDERED: MEPERIDINE/PF 25MG/0.5ML IVPush PRN (16:30)
[2020-06-02] MEDS ORDERED: HYDROcodone/APAP 7.5-325MG/15ML UDC PO PRN ×2 (16:30)
[2020-06-02] MEDS ORDERED: OXYcodone 5 MG/5 ML ORAL.SOL UDC PO PRN (16:30)
[2020-06-02] MEDS ORDERED: ALBUTEROL SULFATE 2.5 MG/3 ML NPPB PRN (16:30)
[2020-06-02] MEDS ORDERED: METOPROLOL 1 MG/ML, 5ML IV PRN (16:30)
[2020-06-02] MEDS: LACTATED RINGERS 1,000 ML IV SCH (17:53)
[2020-06-02 19:20] VITALS: BP 118/75
[2020-06-02 20:23] LABS: BASOPHILS % (AUTO) 0 % (0-1); EOSINOPHILS % (AUTO) 0 % (1-7); LYMPHOCYTES % (AUTO) 15 % (22-44); MEAN CORPUSCULAR HEMOGLOBIN 32.2 pg (27.0-34.8); MEAN CORPUSCULAR HGB CONC 35.2 g/dL (32.4-35.8); MEAN PLATELET VOLUME 8.6 fL (7.4-10.4); MONOCYTES % (AUTO) 6 % (2-9); NEUTROPHILS % (AUTO) 79 % (42-75); PLATELET COUNT 207 x10^3/uL (130-400); RED BLOOD COUNT 4.23 x10^6/uL (3.82-5.3); RED CELL DISTRIBUTION WIDTH 13.3 % (9.6-15.2)
[2020-06-02 20:28] LABS: MD NO
[2020-06-02 20:32] LABS: ALANINE AMINOTRANSFERASE 20 U/L (12-78); ALBUMIN 2.6 g/dL (3.4-5.0); ANION GAP 9 mmol/L (5-15); CALCIUM 8.4 mg/dL (8.5-10.1); CHLORIDE 109 mmol/L (98-107); CREATININE 1.01 mg/dL (0.55-1.02)
[2020-06-02 20:35] LABS: ALKALINE PHOSPHATASE 83 U/L (45-117); BILIRUBIN,TOTAL 0.2 mg/dL (0.2-1.0); TOTAL PROTEIN 5.8 g/dL (6.4-8.2)
[2020-06-02] MEDS: BETAMETHASONE 6 MG/ML, 5ML IM SCH (20:58)
[2020-06-03] MEDS: LACTATED RINGERS 1,000 ML IV SCH ×3 (02:00→18:00)
[2020-06-03 06:12] LABS: BASOPHILS % (AUTO) 0 % (0-1); EOSINOPHILS % (AUTO) 0 % (1-7); LYMPHOCYTES % (AUTO) 13 % (22-44); MEAN CORPUSCULAR HEMOGLOBIN 32.6 pg (27.0-34.8); MEAN CORPUSCULAR HGB CONC 35.8 g/dL (32.4-35.8); MEAN PLATELET VOLUME 8.7 fL (7.4-10.4); MONOCYTES % (AUTO) 2 % (2-9); NEUTROPHILS % (AUTO) 85 % (42-75); PLATELET COUNT 197 x10^3/uL (130-400); RED CELL DISTRIBUTION WIDTH 13.3 % (9.6-15.2)
[2020-06-03 06:29] LABS: MD NO
[2020-06-03 06:55] LABS: ALANINE AMINOTRANSFERASE 20 U/L (12-78); ALBUMIN 2.7 g/dL (3.4-5.0); ANION GAP 8 mmol/L (5-15); CALCIUM 8.6 mg/dL (8.5-10.1); CHLORIDE 109 mmol/L (98-107); CREATININE 0.89 mg/dL (0.55-1.02)
[2020-06-03 06:58] LABS: ALKALINE PHOSPHATASE 86 U/L (45-117); BILIRUBIN,TOTAL 0.2 mg/dL (0.2-1.0); TOTAL PROTEIN 6.3 g/dL (6.4-8.2)
[2020-06-03] MEDS: niFEDipine ER 30 MG TABLET.ER PO SCH (08:47)
[2020-06-03] MEDS: PRENATAL VIT/IRON/FA 1 EACH TABLET PO SCH (08:47)
[2020-06-03] MEDS: DOCUSATE 100 MG CAPSULE PO PRN (08:50)
[2020-06-03] MEDS: BETAMETHASONE 6 MG/ML, 5ML IM SCH (09:00)
[2020-06-03 20:25] VITALS: BP 129/77
[2020-06-04] MEDS: LACTATED RINGERS 1,000 ML IV SCH ×3 (02:00→18:00)
[2020-06-04] MEDS: SODIUM CHLORIDE FLUSH 10ML SYR IVF PRN ×2 (05:57→21:38)
[2020-06-04 08:39] LABS: BASOPHILS % (AUTO) 0 % (0-1); EOSINOPHILS % (AUTO) 0 % (1-7); LYMPHOCYTES % (AUTO) 28 % (22-44); MD NO; MEAN CORPUSCULAR HEMOGLOBIN 32.7 pg (27.0-34.8); MEAN CORPUSCULAR HGB CONC 35.6 g/dL (32.4-35.8); MEAN PLATELET VOLUME 8.3 fL (7.4-10.4); MONOCYTES % (AUTO) 7 % (2-9); NEUTROPHILS % (AUTO) 64 % (42-75); PLATELET COUNT 173 x10^3/uL (130-400); RED BLOOD COUNT 4.17 x10^6/uL (3.82-5.3); RED CELL DISTRIBUTION WIDTH 13.4 % (9.6-15.2)
[2020-06-04 08:47] LABS: ALANINE AMINOTRANSFERASE 18 U/L (12-78); ALBUMIN 2.5 g/dL (3.4-5.0); ANION GAP 7 mmol/L (5-15); CALCIUM 8.5 mg/dL (8.5-10.1); CHLORIDE 108 mmol/L (98-107); CREATININE 0.88 mg/dL (0.55-1.02)
[2020-06-04 08:49] LABS: ALKALINE PHOSPHATASE 74 U/L (45-117); BILIRUBIN,TOTAL 0.2 mg/dL (0.2-1.0); TOTAL PROTEIN 5.7 g/dL (6.4-8.2)
[2020-06-04] MEDS: niFEDipine ER 30 MG TABLET.ER PO SCH (08:56)
[2020-06-04] MEDS: PRENATAL VIT/IRON/FA 1 EACH TABLET PO SCH (08:57)
[2020-06-04] MEDS: DOCUSATE 100 MG CAPSULE PO PRN (21:38)
[2020-06-05] MEDS: LACTATED RINGERS 1,000 ML IV SCH ×3 (02:00→18:00)
[2020-06-05] MEDS: niFEDipine ER 30 MG TABLET.ER PO SCH (09:16)
[2020-06-05] MEDS: PRENATAL VIT/IRON/FA 1 EACH TABLET PO SCH (09:17)
[2020-06-05] MEDS: DOCUSATE 100 MG CAPSULE PO PRN (09:18)
[2020-06-05] MEDS: SODIUM CHLORIDE FLUSH 10ML SYR IVF PRN (09:20)
[2020-06-05 09:55] VITALS: BP 135/83
[2020-06-05 19:45] VITALS: BP 125/85
[2020-06-06] MEDS: LACTATED RINGERS 1,000 ML IV SCH ×3 (02:00→18:00)
[2020-06-06 05:31] LABS: BASOPHILS % (AUTO) 0 % (0-1); EOSINOPHILS % (AUTO) 1 % (1-7); LYMPHOCYTES % (AUTO) 31 % (22-44); MEAN CORPUSCULAR HGB CONC 36.4 g/dL (32.4-35.8); MEAN PLATELET VOLUME 8.9 fL (7.4-10.4); MONOCYTES % (AUTO) 9 % (2-9); NEUTROPHILS % (AUTO) 59 % (42-75); PLATELET COUNT 129 x10^3/uL (130-400); RED BLOOD COUNT 4.27 x10^6/uL (3.82-5.3); RED CELL DISTRIBUTION WIDTH 13.5 % (9.6-15.2)
[2020-06-06 05:36] LABS: MD NO
[2020-06-06 05:52] LABS: ALBUMIN 2.4 g/dL (3.4-5.0); ANION GAP 7 mmol/L (5-15); CALCIUM 8.1 mg/dL (8.5-10.1); CHLORIDE 110 mmol/L (98-107)
[2020-06-06 05:55] LABS: ALANINE AMINOTRANSFERASE 18 U/L (12-78); ALKALINE PHOSPHATASE 90 U/L (45-117); BILIRUBIN,TOTAL 0.1 mg/dL (0.2-1.0); CREATININE 0.75 mg/dL (0.55-1.02); TOTAL PROTEIN 5.4 g/dL (6.4-8.2)
[2020-06-06] MEDS: DOCUSATE 100 MG CAPSULE PO PRN (09:08)
[2020-06-06] MEDS: PRENATAL VIT/IRON/FA 1 EACH TABLET PO SCH (09:08)
[2020-06-06] MEDS: niFEDipine ER 30 MG TABLET.ER PO SCH (09:08)
[2020-06-06 20:00] VITALS: BP 135/92
[2020-06-07] MEDS: LACTATED RINGERS 1,000 ML IV SCH ×3 (02:00→18:00)
[2020-06-07 04:52] LABS: BASOPHILS % (AUTO) 0 % (0-1); EOSINOPHILS % (AUTO) 1 % (1-7); LYMPHOCYTES % (AUTO) 30 % (22-44); MEAN CORPUSCULAR HGB CONC 36.3 g/dL (32.4-35.8); MEAN PLATELET VOLUME 8.6 fL (7.4-10.4); MONOCYTES % (AUTO) 6 % (2-9); NEUTROPHILS % (AUTO) 63 % (42-75); PLATELET COUNT 132 x10^3/uL (130-400); RED BLOOD COUNT 4.41 x10^6/uL (3.82-5.3)
[2020-06-07 04:54] LABS: MD NO
[2020-06-07 04:58] LABS: ALANINE AMINOTRANSFERASE 15 U/L (12-78); ALBUMIN 2.6 g/dL (3.4-5.0); ANION GAP 6 mmol/L (5-15); CALCIUM 8.6 mg/dL (8.5-10.1); CHLORIDE 109 mmol/L (98-107); CREATININE 0.76 mg/dL (0.55-1.02)
[2020-06-07 05:00] LABS: ALKALINE PHOSPHATASE 86 U/L (45-117); BILIRUBIN,TOTAL 0.2 mg/dL (0.2-1.0); TOTAL PROTEIN 5.7 g/dL (6.4-8.2)
[2020-06-07] MEDS: PRENATAL VIT/IRON/FA 1 EACH TABLET PO SCH (08:26)
[2020-06-07] MEDS: niFEDipine ER 30 MG TABLET.ER PO SCH (08:26)
[2020-06-07] MEDS: DOCUSATE 100 MG CAPSULE PO PRN (08:26)
[2020-06-07] MEDS: SODIUM CHLORIDE FLUSH 10ML SYR IVF PRN (08:27)
[2020-06-07 20:30] VITALS: BP_SYST 128; BP_SYST 131; BP_DIAS 74; BP_DIAS 94
[2020-06-08] MEDS: LACTATED RINGERS 1,000 ML IV SCH ×2 (02:00→10:00)
[2020-06-08] MEDS: niFEDipine ER 30 MG TABLET.ER PO SCH (08:34)
[2020-06-08] MEDS: PRENATAL VIT/IRON/FA 1 EACH TABLET PO SCH (08:34)
[2020-06-08] MEDS: DOCUSATE 100 MG CAPSULE PO PRN ×2 (08:35→21:32)
[2020-06-08 09:20] LABS: BASOPHILS % (AUTO) 0 % (0-1); EOSINOPHILS % (AUTO) 1 % (1-7); LYMPHOCYTES % (AUTO) 33 % (22-44); MEAN CORPUSCULAR HEMOGLOBIN 32.7 pg (27.0-34.8); MEAN PLATELET VOLUME 9.2 fL (7.4-10.4); MONOCYTES % (AUTO) 7 % (2-9); NEUTROPHILS % (AUTO) 60 % (42-75); PLATELET COUNT 150 x10^3/uL (130-400); RED BLOOD COUNT 4.53 x10^6/uL (3.82-5.3); RED CELL DISTRIBUTION WIDTH 13.6 % (9.6-15.2)
[2020-06-08 09:21] LABS: MD NO
[2020-06-08 09:31] LABS: ALANINE AMINOTRANSFERASE 17 U/L (12-78); ALBUMIN 2.7 g/dL (3.4-5.0); ANION GAP 6 mmol/L (5-15); CALCIUM 8.5 mg/dL (8.5-10.1); CHLORIDE 108 mmol/L (98-107); CREATININE 0.78 mg/dL (0.55-1.02)
[2020-06-08 09:34] LABS: ALKALINE PHOSPHATASE 84 U/L (45-117); BILIRUBIN,TOTAL 0.4 mg/dL (0.2-1.0); TOTAL PROTEIN 6.1 g/dL (6.4-8.2)
[2020-06-09] MEDS: SODIUM CHLORIDE FLUSH 3ML SYRINGE IVF SCH (08:03)
[2020-06-09] MEDS: niFEDipine ER 30 MG TABLET.ER PO SCH (08:55)
[2020-06-09] MEDS: DOCUSATE 100 MG CAPSULE PO PRN (08:55)
[2020-06-09] MEDS: PRENATAL VIT/IRON/FA 1 EACH TABLET PO SCH (08:55)
[2020-06-09] MEDS ORDERED: METOCLOPRAMIDE 5 MG/ML, 2ML ONE (17:31)
[2020-06-09] MEDS ORDERED: OXYTOCIN 30U/ 0.9% NaCL 500ML 500 ML ONE (17:31)
[2020-06-09] MEDS ORDERED: SODIUM CITRATE/CITRIC ACID 15 ML UDC ONE (17:31)
[2020-06-09] MEDS ORDERED: NEWBORN KIT ONE (17:33)
[2020-06-09] MEDS ORDERED: morphine SULFATE/PF 0.5 MG/ML, 10ML ONE (17:46)
[2020-06-09] MEDS ORDERED: PHENYLEPHRINE 10 MG/ML ONE (17:49)
[2020-06-09] MEDS ORDERED: OXYTOCIN 10 UNITS/ML, 1ML ONE (17:49)
[2020-06-09] MEDS ORDERED: DEXAMETHASONE 4 MG/ML, 1ML ONE (17:49)
[2020-06-09] MEDS ORDERED: ONDANSETRON 2MG/ML, 2ML ONE (17:49)
[2020-06-09] MEDS ORDERED: KETOROLAC 30 MG/1 ML ONE (17:49)
[2020-06-09] MEDS ORDERED: CEFAZOLIN 1,000 MG ONE (17:49)
[2020-06-09] MEDS ORDERED: SODIUM CHLORIDE 0.9% PF 10ML ONE (17:49)
[2020-06-09] MEDS ORDERED: METOCLOPRAMIDE 5 MG/ML, 2ML IV ONE (18:00)
[2020-06-09] MEDS ORDERED: SODIUM CITRATE/CITRIC ACID 30 ML UDC PO ONE (18:00)
[2020-06-09] MEDS ORDERED: LACTATED RINGERS 1,000 ML IVBOLUS ONE (18:00)
[2020-06-09] MEDS ORDERED: FENTANYL PF 100 MCG/2ML ONE (18:08)
[2020-06-09] MEDS ORDERED: MAGNESIUM SULFATE PMX 4GM/100M 100 ML ONE (19:13)
[2020-06-09] MEDS ORDERED: MAGNESIUM SULF. PMX 20GM/500ML 500 ML IV ONE (19:13)
[2020-06-09] MEDS ORDERED: MAGNESIUM SULFATE PMX 4GM/100M 100 ML IVPB ONE (19:30)
[2020-06-09] MEDS ORDERED: MISOPROSTOL 200 MCG TABLET PR PRN (19:30)
[2020-06-09] MEDS ORDERED: ACETAMINOPHEN 500 MG TABLET PO PRN (19:30)
[2020-06-09] MEDS: OXYTOCIN 30U/ 0.9% NaCL 500ML 500 ML IV SCH (19:30)
[2020-06-09] MEDS ORDERED: ONDANSETRON 2MG/ML, 2ML IV PRN ×2 (19:30→23:00)
[2020-06-09] MEDS: LACTATED RINGERS 1,000 ML IV SCH ×2 (19:30)
[2020-06-09] MEDS ORDERED: OXYcodone/APAP 5/325MG TABLET PO PRN ×2 (19:30→23:00)
[2020-06-09 19:34] LABS: BASOPHILS % (AUTO) 0 % (0-1); EOSINOPHILS % (AUTO) 1 % (1-7); LYMPHOCYTES % (AUTO) 20 % (22-44); MD NO; MEAN CORPUSCULAR HEMOGLOBIN 32.7 pg (27.0-34.8); MEAN CORPUSCULAR HGB CONC 35.7 g/dL (32.4-35.8); MEAN PLATELET VOLUME 8.7 fL (7.4-10.4); MONOCYTES % (AUTO) 6 % (2-9); NEUTROPHILS % (AUTO) 74 % (42-75); PLATELET COUNT 138 x10^3/uL (130-400); RED BLOOD COUNT 4.17 x10^6/uL (3.82-5.3); RED CELL DISTRIBUTION WIDTH 13.3 % (9.6-15.2)
[2020-06-09 19:46] LABS: ALANINE AMINOTRANSFERASE 16 U/L (12-78); ALBUMIN 2.5 g/dL (3.4-5.0); ANION GAP 6 mmol/L (5-15); CALCIUM 8.3 mg/dL (8.5-10.1); CHLORIDE 110 mmol/L (98-107); CREATININE 0.89 mg/dL (0.55-1.02)
[2020-06-09 19:48] LABS: ALKALINE PHOSPHATASE 80 U/L (45-117); BILIRUBIN,TOTAL 0.2 mg/dL (0.2-1.0); TOTAL PROTEIN 5.6 g/dL (6.4-8.2)
[2020-06-09] MEDS: MAGNESIUM SULF. PMX 20GM/500ML 500 ML IV SCH (19:48)
[2020-06-09] MEDS: ACETAMINOPHEN 500 MG TABLET PO SCH (21:08)
[2020-06-09] MEDS: OXYcodone IR 5MG TABLET PO PRN (22:17)
[2020-06-09] MEDS ORDERED: NO SEDATIVES, TRANQUILIZERS OR ANTIEMETICS XX SCH (23:00)
[2020-06-09] MEDS ORDERED: HYDROmorphone 2 MG/ML, 1ML IV PRN (23:00)
[2020-06-09] MEDS ORDERED: PROMETHAZINE 25 MG/ML, 1ML IV PRN (23:00)
[2020-06-09] MEDS ORDERED: NALOXONE 0.4 MG/ML, 1ML IV PRN (23:00)
[2020-06-09] MEDS ORDERED: ONDANSETRON 2MG/ML, 2ML IVPush PRN (23:00)
[2020-06-09] MEDS ORDERED: morphine SULFATE 10 MG/ML, 1ML IVPush PRN (23:00)
[2020-06-09] MEDS ORDERED: MIDAZOLAM 1 MG/ML, 5ML IV PRN (23:00)
[2020-06-09] MEDS ORDERED: LABETALOL 5MG/ML 40ML VIAL IV PRN (23:00)
[2020-06-09] MEDS ORDERED: OXYcodone 5 MG/5 ML ORAL.SOL UDC PO PRN (23:00)
[2020-06-09] MEDS ORDERED: MEPERIDINE/PF 25MG/0.5ML IV PRN (23:00)
[2020-06-09] MEDS ORDERED: FENTANYL PF 100 MCG/2ML IVPush PRN (23:00)
[2020-06-09] MEDS ORDERED: METOCLOPRAMIDE 5 MG/ML, 2ML IV PRN (23:00)
[2020-06-10] MEDS: KETOROLAC 30 MG/1 ML IV SCH ×5 (00:04→23:43)
[2020-06-10 01:45] LABS: BASOPHILS % (AUTO) 0 % (0-1); EOSINOPHILS % (AUTO) 0 % (1-7); LYMPHOCYTES % (AUTO) 9 % (22-44); MEAN CORPUSCULAR HEMOGLOBIN 32.7 pg (27.0-34.8); MEAN CORPUSCULAR HGB CONC 35.6 g/dL (32.4-35.8); MEAN PLATELET VOLUME 8.7 fL (7.4-10.4); MONOCYTES % (AUTO) 3 % (2-9); NEUTROPHILS % (AUTO) 88 % (42-75); PLATELET COUNT 188 x10^3/uL (130-400); RED BLOOD COUNT 3.76 x10^6/uL (3.82-5.3); RED CELL DISTRIBUTION WIDTH 13.5 % (9.6-15.2)
[2020-06-10 01:49] LABS: MD NO
[2020-06-10] MEDS: ACETAMINOPHEN 500 MG TABLET PO SCH ×4 (03:01→20:57)
[2020-06-10] MEDS: EPHEDRINE 50 MG/ML, 1ML IVPush PRN ×2 (04:03→05:18)
[2020-06-10 05:18] LABS: BASOPHILS % (AUTO) 0 % (0-1); EOSINOPHILS % (AUTO) 0 % (1-7); LYMPHOCYTES % (AUTO) 9 % (22-44); MEAN CORPUSCULAR HEMOGLOBIN 33.1 pg (27.0-34.8); MEAN CORPUSCULAR HGB CONC 36.1 g/dL (32.4-35.8); MEAN PLATELET VOLUME 8.7 fL (7.4-10.4); MONOCYTES % (AUTO) 5 % (2-9); NEUTROPHILS % (AUTO) 86 % (42-75); PLATELET COUNT 182 x10^3/uL (130-400); RED BLOOD COUNT 3.33 x10^6/uL (3.82-5.3); RED CELL DISTRIBUTION WIDTH 13.7 % (9.6-15.2)
[2020-06-10 05:19] LABS: MD NO
[2020-06-10 05:25] LABS: ANION GAP 8 mmol/L (5-15); CALCIUM 7.6 mg/dL (8.5-10.1); CHLORIDE 105 mmol/L (98-107); CREATININE 0.93 mg/dL (0.55-1.02)
[2020-06-10] MEDS: MAGNESIUM SULF. PMX 20GM/500ML 500 ML IV SCH (05:30)
[2020-06-10] MEDS ORDERED: MEASLES,MUMPS&RUBELLA VACC/PF 0.5 ML SQ-VACC ONE ×2 (08:30→13:10)
[2020-06-10] MEDS: PRENATAL VIT/IRON/FA 1 EACH TABLET PO SCH ×2 (08:57→09:00)
[2020-06-10] MEDS: SODIUM CHLORIDE FLUSH 3ML SYRINGE IVF SCH ×3 (09:00→21:00)
[2020-06-10] MEDS: OXYTOCIN 30U/ 0.9% NaCL 500ML 500 ML IV SCH (18:44)
[2020-06-10] MEDS: LACTATED RINGERS 1,000 ML IV SCH ×3 (18:44→19:30)
[2020-06-10] MEDS: DOCUSATE 100 MG CAPSULE PO PRN (19:14)
[2020-06-10 19:30] VITALS: BP 104/69
[2020-06-10 23:46] VITALS: BP 109/68
[2020-06-11] MEDS: LACTATED RINGERS 1,000 ML IV SCH ×6 (01:30→21:30)
[2020-06-11] MEDS: OXYTOCIN 30U/ 0.9% NaCL 500ML 500 ML IV SCH ×3 (01:30→21:30)
[2020-06-11] MEDS: ACETAMINOPHEN 500 MG TABLET PO SCH ×4 (02:55→21:00)
[2020-06-11] MEDS: OXYcodone IR 5MG TABLET PO PRN ×2 (02:59→22:18)
[2020-06-11 03:43] VITALS: BP 99/64
[2020-06-11] MEDS: KETOROLAC 30 MG/1 ML IV SCH ×3 (05:46→18:00)
[2020-06-11] MEDS: DOCUSATE 100 MG CAPSULE PO PRN ×2 (08:24→22:18)
[2020-06-11] MEDS: PRENATAL VIT/IRON/FA 1 EACH TABLET PO SCH (08:24)
[2020-06-11] MEDS: ACETAMINOPHEN 500 MG TABLET PO PRN ×3 (08:25→22:18)
[2020-06-11 08:30] VITALS: BP 101/62
[2020-06-11] MEDS: SODIUM CHLORIDE FLUSH 3ML SYRINGE IVF SCH ×2 (08:51→21:00)
[2020-06-11 15:00] VITALS: BP 100/65
[2020-06-11] MEDS: IBUPROFEN 600 MG TABLET PO PRN (18:07)
[2020-06-11] MEDS ORDERED: DIPH,PERTUSS(ACELL),TET VAC/PF NC IM-VACC ONE (18:30)
[2020-06-11 19:30] VITALS: BP 107/71
[2020-06-11] MEDS: SIMETHICONE 80 MG CHEW TAB PO PRN (22:18)
[2020-06-12] MEDS: ACETAMINOPHEN 500 MG TABLET PO SCH ×4 (03:00→22:48)
[2020-06-12] MEDS: LACTATED RINGERS 1,000 ML IV SCH ×5 (03:30→19:30)
[2020-06-12] MEDS: ACETAMINOPHEN 500 MG TABLET PO PRN (06:02)
[2020-06-12] MEDS: IBUPROFEN 600 MG TABLET PO PRN ×3 (06:02→22:48)
[2020-06-12] MEDS: OXYTOCIN 30U/ 0.9% NaCL 500ML 500 ML IV SCH ×2 (07:30→17:30)
[2020-06-12 07:59] VITALS: BP 98/64
[2020-06-12] MEDS: PRENATAL VIT/IRON/FA 1 EACH TABLET PO SCH (08:04)
[2020-06-12] MEDS: DOCUSATE 100 MG CAPSULE PO PRN ×2 (08:04→22:48)
[2020-06-12 22:45] VITALS: BP 111/80
[2020-06-13] MEDS: LACTATED RINGERS 1,000 ML IV SCH ×4 (03:30→13:30)
[2020-06-13] MEDS: OXYTOCIN 30U/ 0.9% NaCL 500ML 500 ML IV SCH ×2 (03:30→13:30)
[2020-06-13] MEDS: IBUPROFEN 600 MG TABLET PO PRN (06:20)
[2020-06-13] MEDS: ACETAMINOPHEN 500 MG TABLET PO SCH ×2 (06:23→11:00)
[2020-06-13 07:05] VITALS: BP 127/63
[2020-06-13] MEDS: PRENATAL VIT/IRON/FA 1 EACH TABLET PO SCH (07:34)
[2020-06-13] MEDS: DOCUSATE 100 MG CAPSULE PO PRN (07:34)
[2020-06-13] MEDS: SIMETHICONE 80 MG CHEW TAB PO PRN (09:03)
== END 2020-06-13 14:20 | disposition home or self-care (01) | DRG 788 ==
LOC: LDOP 15:43 → LDIP 15:45 → 2NW 06-10 17:20
PROVIDERS: ADMIT Obstetrics & Gynecology Maternal & Fetal Medicine; ATTEND Obstetrics & Gynecology Maternal & Fetal Medicine
PROC: 10D00Z1 Extraction of Products of Conception, Low, Open Approach (ICD-10-PCS; principal; 2020-06-09)
DX: O13.4 Gestational [pregnancy-induced] hypertension without significant proteinuria, complicating childbirth (principal); O14.14 Severe pre-eclampsia complicating childbirth; O76 Abnormality in fetal heart rate and rhythm complicating labor and delivery; O36.5930 Maternal care for other known or suspected poor fetal growth, third trimester, not applicable or unspecified; Z3A.29 29 weeks gestation of pregnancy; Z37.0 Single live birth; Z20.822 Contact with and (suspected) exposure to COVID-19; Z86.16 Personal history of COVID-19
CPT/HCPCS: 36415; 59001; 80048; 80053; 81003; 82248; 82570; 83735; 84156; 84550; 85025; 86592; 86850; 86900; 87081; 88307; 90707; 90715; 93005; G0378; J0690; J0702; J1100; J1885; J2274; J2405; J3010; J2370; J2590; J2765; J3475; J7120